=== PATIENT | female | born 1960 | race Caucasian/White ===

== ENCOUNTER 2018-07-19 00:24 | Emergency (ER) | payer OTHER ==
[~2018-07-19] VITALS: Ht 170.2 cm; Wt 61.2 kg
[2018-07-19 00:29] VITALS: BP_SYST 125
--- NOTE | 2018-07-19 00:35 | NUR ---
Patient to ER bed 05 for evaluation. Side rails up. Report given to ROZINA COOPER.
--- NOTE | 2018-07-19 00:37 | NUR ---
Pt AAOx4 ambulated into ED c/o 8/10 L upper arm and shoulder pain s/p fall while skiing x 12 hours ago. Pt unable to lift arm above head. Pt was placed in sling by paramedics, and pt took flight to [place] to be seen in ED near home. Pt took tylenol with mild relief. Cap refill<3, skin pink dry and warm, breathing even and unlabored. No other injuries/complaints per pt/noted. Will continue to monitor.
--- NOTE | 2018-07-19 00:42 | NUR ---
PT BIB FAMILY TO ED C/O UPPER LEFT ARM / SHOULDER PAIN. PT STATES INJURIED WHILE SKIING NOT QUITE SURE IF IT'S THE ARM AND/OR THE SHOULDER. NO OTHER INJURIES OR COMPLAINTS NOTED BY PT OR OBSERVED. V/S STABLE NO S/S OF ACUTE DISTRESS, RESTING ON GURNEY WITH RAILS UP
--- NOTE | 2018-07-19 00:49 | NUR ---
DR. QUINN BEDSIDE FOR PT EVAL
--- NOTE | 2018-07-19 00:53 | NUR ---
PT TAKEN TO RADIOLOGY, STABLE CONDITION
--- NOTE | 2018-07-19 01:13 | NUR ---
Patient back in the room from radiology. Stable condition.
[2018-07-19] MEDS ORDERED: MORPHINE 4 MG/ML INJ. SYRINGE IVP ONE (01:15)
[2018-07-19] MEDS ORDERED: MORPHINE 4 MG/ML INJ. SYRINGE IM ONE (01:30)
--- NOTE | 2018-07-19 01:30 | NUR ---
Sling applied to L arm. Pt tolerated well.
[2018-07-19 01:50] VITALS: BP_SYST 120
--- NOTE | 2018-07-19 01:54 | NUR ---
Patient given written and verbal discharge instructions and verbalizes understanding. ER MD Quinn discussed with patient the results and treatment provided. Patient in stable condition. ID arm band removed. Rx of Motrin, [place] given. Patient educated on pain management and to follow up with PMD. Pain Scale 2. Opportunity for questions provided and answered. Medication side effect fact sheet provided.
== END 2018-07-19 01:05 | disposition home or self-care (01) ==
LOC: SED 00:24
DX: S42.392A Other fracture of shaft of left humerus, initial encounter for closed fracture (principal); R03.0 Elevated blood-pressure reading, without diagnosis of hypertension; W19.XXXA Unspecified fall, initial encounter; Y93.89 Activity, other specified; Y92.89 Other specified places as the place of occurrence of the external cause; Y99.8 Other external cause status
CPT/HCPCS: 73030; 96372; 99283; J2270